=== PATIENT | male | born 1955 | race Hispanic/Latino ===

== ENCOUNTER 2018-07-11 14:16 | Inpatient (IN) | payer MEDICARE, OTHER ==
[~2018-07-11] VITALS: Ht 177.8 cm; Wt 100.8 kg
[2018-07-11] VITALS (22 sets, daily range): BP systolic 72–123; BP diastolic 41–77
[~2018-07-11 14:16] MED LIST: AMIODARONE HCL INJ 150MG/3ML IV ONE; ASPIRIN81 M1; ATORVASTATIN CA40 MG; ATROPINE SULFATE 0.1 MG/ML 10ML SYR IV ONE; FUROSEMIDE40 MG; GABAPENTIN300 MG; LEVEMIR; LEVOTHYROXINE112 MCG; NOVOLOG; PREDNISOLONE ACE5 ML; TRADJENTA5 MG; VITAMIN B12; VITAMIN D
[2018-07-11] MEDS ORDERED: ONDANSETRON HCL 4 MG ORAL DISINTEGRATING TAB ONE (15:10)
[2018-07-11] MEDS ORDERED: ONDANSETRON HCL 4 MG ORAL DISINTEGRATING TAB PO ONE (15:15)
[2018-07-11] MEDS ORDERED: DEXTROSE 50% SYRINGE 50 ML IV ONE (15:26)
[2018-07-11] MEDS ORDERED: ONDANSETRON HCL INJ 2 MG/ML VIAL IV STA (15:30)
[2018-07-11] MEDS ORDERED: FAMOTIDINE 20 MG/2 ML VIAL IV STA (15:30)
[2018-07-11] MEDS ORDERED: ONDANSETRON HCL INJ 2 MG/ML VIAL ONE (15:30)
[2018-07-11] MEDS ORDERED: FAMOTIDINE 20 MG/2 ML VIAL IV ONE (15:31)
[2018-07-11] MEDS ORDERED: SODIUM CHLORIDE 0.9% 250ML 200 ML IV ONE (15:32)
[2018-07-11] MEDS ORDERED: SODIUM CHLORIDE 0.9% 1000ML 1,000 ML ONE (15:32)
[2018-07-11] MEDS ORDERED: HYDRALAZINE HCL 20 MG/ML VIAL IV STA (15:40)
[2018-07-11 15:45] LABS: BASOPHILS # (AUTO) 0.1 (0.0-0.1); BASOPHILS % 0.5 % (0.0-1.0); EOSINOPHILS # (AUTO) 0.4 (0.0-0.4); EOSINOPHILS % 2.1 % (0.0-6.0); HEMATOCRIT 34.6 % (38.2-49.6); HEMOGLOBIN 11.2 g/dL (14.0-18.0); LYMPHOCYTES # (AUTO) 3.7 (1.0-3.2); LYMPHOCYTES % 21.8 % (18.0-39.1); MEAN CORPUSCULAR HEMOGLOBIN 31.7 pg (28-32); MEAN CORPUSCULAR HGB CONC 32.4 g/dL (31-35); MONOCYTES # (AUTO) 1.5 (0.2-0.8); MONOCYTES % 8.7 % (4.4-11.3); NEUTROPHILS # (AUTO) 11.2 (2.1-6.9); NEUTROPHILS % 66.3 % (38.7-80.0); PLATELET COUNT 275 x10e3/uL (140-360); RED BLOOD COUNT 3.53 x10e6/uL (4.3-5.7)
[2018-07-11] MEDS ORDERED: ASPIRIN 81 MG CHEW TAB PO ONE ×2 (15:45→17:30)
[2018-07-11] MEDS ORDERED: DEXTROSE 50% SYRINGE 50 ML IV STA (15:48)
[2018-07-11] MEDS ORDERED: ALBUTEROL SULF 0.083% NEB SOLN 3 ML NEB NEB STA (15:48)
[2018-07-11] MEDS ORDERED: SODIUM BICARBONATE 8.4% INJ 50 ML SYR IV STA (15:48)
[2018-07-11] MEDS ORDERED: ALBUTEROL SULF 0.083% NEB SOLN 3 ML NEB ONE (15:51)
[2018-07-11] MEDS ORDERED: HYDRALAZINE HCL 20 MG/ML VIAL ONE (15:53)
[2018-07-11] MEDS ORDERED: CALCIUM GLUCONATE 10% INJ 4.65 MEQ in SODIUM CHLORIDE 0.9% 50ML 50 ML IV ONE (16:00)
[2018-07-11] MEDS ORDERED: INSULIN REGULAR, HUMAN 100 UNIT/1 ML 3ML VIAL IV ONE ×2 (16:00→16:15)
[2018-07-11 16:05] LABS: ALBUMIN 3.8 g/dL (3.5-5.0); ANION GAP 23.8 mmol/L (8-16); CALCIUM 10.1 mg/dL (8.4-10.2); CREATININE, SERUM 9.05 mg/dL (0.72-1.25)
[2018-07-11 16:07] LABS: POTASSIUM 6.8 mmol/L (3.5-5.1)
[2018-07-11 16:12] LABS: CREATINE KINASE MB 4.7 ng/mL (0-5.0)
[2018-07-11] MEDS ORDERED: SODIUM CHLORIDE 0.9% 100 ML ONE (17:07)
[2018-07-11] MEDS ORDERED: AMIODARONE HCL 900 MG in DEXTROSE 5% 500ML 500 ML IV ONE (17:15)
[2018-07-11] MEDS ORDERED: AMIODARONE 900MG 500 ML IV SCH (17:15)
[2018-07-11] MEDS ORDERED: AMIODARONE HCL 150MG 100 ML IV ONE (17:15)
[2018-07-11 17:28] LABS: LYMPHOCYTES % (MANUAL) 20 % (19-48); MONOCYTES % (MANUAL) 6 % (3.4-9.0); NEUTROPHILS % (MANUAL) 74 % (40-74)
[2018-07-11 17:29] LABS: PLATELET ESTIMATE ADEQUATE; PLATELET MORPHOLOGY COMMENT NORMAL; RBC MORPHOLOGY COMMENT NORMAL
[2018-07-11] MEDS: FAMOTIDINE 20 MG/2 ML VIAL IV SCH (17:30)
[2018-07-11] MEDS ORDERED: SODIUM CHLORIDE FLUSH 10 ML SYR INJ PRN (17:30)
[2018-07-11] MEDS ORDERED: ONDANSETRON HCL INJ 2 MG/ML VIAL IV PRN (17:30)
[2018-07-11] MEDS ORDERED: CALCIUM GLUCONATE 10% INJ 0.465 MEQ/ML VIAL IV STA (17:34)
[2018-07-11] MEDS ORDERED: DEXTROSE 50% SYRINGE 50 ML IV PRN (17:45)
--- NOTE | 2018-07-11 17:57 | Diagnostic Imaging Report ---
Exams: Head and cervical spine CTs without IV contrast History: Trauma, fall Comparison studies: None Technique: Axial images were obtained from the brain and cervical spine. Coronal and sagittal images reconstructed from the axial data. Dose modulation, iterative reconstruction, and/or weight based adjustment of the mA/kV was utilized to reduce the radiation dose to as low as reasonably achievable. Intravenous contrast: None Findings: Head CT: Scalp: No abnormalities. Bones: No fractures, blastic or lytic lesions. Extra-axial spaces: No masses. No fluid collections. Brain sulci: Appropriate for age. Ventricles: Normal in size and configuration. No hydrocephalus. Parenchyma: No abnormal densities. No masses, acute hemorrhage, acute or chronic vascular insults. Sellar/suprasellar region: No abnormalities. Craniocervical junction: The foramen magnum is patent. No Chiari one malformation. Cervical spine CT: Fractures: Questionable age-indeterminate nondisplaced left C7 transverse process fracture. Evaluation at this level somewhat limited by attenuation artifact related to patient's overlying shoulders and by body habitus. No other fractures. Soft tissues: No gross acute abnormalities. Atlantoaxial articulation: Intact. Alignment: Normal lordosis. No scoliosis. Cervicomedullary junction: No abnormalities. The foramen magnum is patent. Vertebrae: No infection or neoplasm. Degenerative changes: Moderate degenerative changes at the atlantodental articulation. Mild degenerative changes at the right atlantooccipital articulation. Mild multilevel disc degeneration with partially calcified disc at C2-C3, C3-C4 and at C4-C5. There is mild multifocal ossification of the posterior longitudinal ligament. No significant canal stenosis. Pain foramina. Mild left C3-C4 foraminal stenosis due to uncovertebral facet arthrosis. Incidental findings: * Scattered calcified atherosclerosis with calcified plaque in the cervical carotid bulbs, carotid siphons and intradural vertebral arteries. Additional mass or calcifications in the scalp which can be seen in patients with chronic kidney disease. * Small 7 mm pineal cyst without associated mass effect. * Right lens replacement related to previous cataract surgery. Left lens is not well-visualized. Increased density in the left globe presumably related to silicone injection. IMPRESSION: Head CT: No acute abnormalities. Cervical spine CT: 1. Questionable age-indeterminate nondisplaced left C7 transverse process fracture. 2. No other fractures or subluxations. 3. Degenerative changes as described. 4. Please note, cannot adequately evaluate ligament, spinal cord and or vascular abnormalities on the basis of this examination. Signed by: Dr. Sukumar Iniguez M.D. on 07/11/2018 5:53 PM
--- NOTE | 2018-07-11 18:45 | Diagnostic Imaging Report ---
SHOULDER LEFT COMPLETE - 2 views HISTORY: Pain. Possible contusion. COMPARISON: None available. FINDINGS: Bones: No acute displaced fracture. Osseous alignment is within normal limits. Joints: The joint spaces are well-maintained. Soft tissues: Soft tissue swelling around the left deltoid. Left subclavian vascular stent. IMPRESSION: 1. No acute osseous abnormality. 2. Soft tissue swelling around the left deltoid. Signed by: Dr. Ralph Alcantar M.D. on 07/11/2018 6:42 PM
--- NOTE | 2018-07-11 18:46 | Diagnostic Imaging Report ---
EXAMINATION: CHEST SINGLE (PORTABLE) INDICATION: \S\Chest pain, look for CHF, enlarge Mediastinum COMPARISON: None FINDINGS: AP view TUBES and LINES: None. LUNGS: Lungs are not well inflated. Perihilar vascular crowding and atelectasis. There is no evidence of pneumonia or pulmonary edema. PLEURA: No pleural effusion or pneumothorax. HEART AND MEDIASTINUM: The cardiomediastinal silhouette is unremarkable. Left subclavian stent. BONES AND SOFT TISSUES: No acute osseous lesion. Soft tissues are unremarkable. UPPER ABDOMEN: No free air under the diaphragm. IMPRESSION: Hypoinflated lungs with perihilar vascular crowding and atelectasis. No acute abnormalities. Signed by: Dr. Ralph Alcantar M.D. on 07/11/2018 6:42 PM
--- NOTE | 2018-07-11 18:47 | Diagnostic Imaging Report ---
HIP LEFT 2-3 VW (+/- PELVIS) - 3 views HISTORY: Pain. Possible concussion. COMPARISON: None available. FINDINGS: Bones: No acute displaced fracture. Osseous alignment is within normal limits. Joints: Moderate degenerative changes of lower lumbar spine. Moderate to severe bilateral facet joint sclerosis. Soft tissues: The soft tissues appear unremarkable. Diffuse medium and small vessel vascular calcifications. IMPRESSION: No acute radiographic abnormality. Signed by: Dr. Ralph Alcantar M.D. on 07/11/2018 6:44 PM
[2018-07-11 18:48] LABS: ANION GAP 22.9 mmol/L (8-16); CALCIUM 11.3 mg/dL (8.4-10.2); CREATININE, SERUM 8.97 mg/dL (0.72-1.25)
[2018-07-11 18:49] LABS: POTASSIUM 5.9 mmol/L (3.5-5.1)
[2018-07-11] MEDS: HYDROMORPHONE 2MG/ML 2 MG/ML ML IV PRN (22:30)
[2018-07-12] VITALS (60 sets, daily range): BP systolic 76–159; BP diastolic 37–107
[2018-07-12 00:32] LABS: ANION GAP 17.3 mmol/L (8-16); CALCIUM 9.3 mg/dL (8.4-10.2); CREATININE, SERUM 4.54 mg/dL (0.72-1.25); POTASSIUM 4.3 mmol/L (3.5-5.1)
[2018-07-12 00:39] LABS: CREATINE KINASE MB 3.7 ng/mL (0-5.0)
[2018-07-12] MEDS: HYDROMORPHONE 2MG/ML 2 MG/ML ML IV PRN (04:02)
[2018-07-12 05:06] LABS: CREATINE KINASE MB 3.8 ng/mL (0-5.0)
[2018-07-12 05:08] LABS: ANION GAP 17.8 mmol/L (8-16); CALCIUM 9.5 mg/dL (8.4-10.2); CHOL/HDL RATIO 3.7 (3.9-4.7); CREATININE, SERUM 5.66 mg/dL (0.72-1.25); MAGNESIUM 2.2 MG/DL (1.3-2.1); POTASSIUM 4.8 mmol/L (3.5-5.1)
[2018-07-12] MEDS: FAMOTIDINE 20 MG/2 ML VIAL IV SCH ×2 (05:30→17:30)
[2018-07-12 11:01] LABS: FREE THYROXINE INDEX 2.4506 (1.4-3.8); THYROID STIMULATING HORMONE 2.76 uIU/mL (0.350-4.940)
[2018-07-12] MEDS ORDERED: NON-FORMULARY MEDICATION ([Vitamin D] 50,000 UNITS) SCH (11:15)
[2018-07-12] MEDS: FUROSEMIDE 40 MG TAB PO SCH (11:22)
[2018-07-12] MEDS: GABAPENTIN 300 MG CAP PO SCH (11:22)
--- NOTE | 2018-07-12 11:27 | Consultation ---
DATE OF CONSULTATION: ATTENDING PHYSICIAN: Ryan Davenport MD CLINICAL HISTORY: This is a 62-year-old white man known to me from previous evaluations admitted via the emergency room because of hyperkalemia causing severe bradycardia, heart rate dropping down to the 30s with potassium 6.8, causing the ER to give atropine, which reportedly caused ventricular tachycardia, which reportedly caused them to give amiodarone, which caused further bradycardia. I was not notified until today. This patient has history of dilated aortic root, right bundle branch block, left anterior hemiblock, diastolic dysfunction, hypothyroidism, diabetes, hypertension, depression. He is chronically on hemodialysis Saturdays, Tuesdays and . Reportedly he missed dialysis in the morning on Tuesday and in the afternoon he became severely bradycardic. Reportedly, he had fallen at home and could not make it to the dialysis center. PAST MEDICAL HISTORY: Remarkable for cholecystectomy and fracture of the left arm. There is a history of transverse myelitis. FAMILY HISTORY: Father had myocardial infarction in his 70s. Father had stroke. PERSONAL / SOCIAL HISTORY: Denies smoking and drinking. ALLERGIES: NONE KNOWN. REVIEW OF SYSTEMS: Negative. PHYSICAL EXAMINATION GENERAL: He is somewhat overweight. CARDIAC: Jugular veins are not distended. S1, S2 were regular. There is no appreciable murmur. LUNGS: Clear. ABDOMEN: Soft. Bowel sounds are present. EXTREMITIES: No cyanosis, clubbing or edema. LABORATORY STUDIES: The initial electrocardiogram showed sinus bradycardia, occasional runs of PSVT at a rate of approximately 105 beats per minute nonsustained. The chest x-ray showed hypoinflated lungs. Perihilar vascular crowding. Hip x-ray was unremarkable. CT of the brain showed no acute abnormalities. Cervical CT: C7 transverse process fracture. Thyroid functions are pending. Triglycerides 158, cholesterol 131, LDL 35. White count is 16,000, hemoglobin 11.2, platelet count 475,000. IMPRESSION 1. Severe bradycardia probably due to severe hyperkalemia, potassium 6.8. 2. Severe hyperkalemia, potassium 6.82. 3. End-stage renal disease on chronic hemodialysis on Saturdays, Tuesdays and . 4. Nonsustained supraventricular tachycardia and unclear ventricular tachycardia after atropine since this was not documented on the tracings available to me. 5. History of hypothyroidism. 6. Right bundle-branch block and left anterior hemiblock. 7. Diastolic dysfunction. 8. Diabetes. 9. Hypertension. 10. Dilated aortic root measuring 3.9 cm in 2012. 11. Depression. 12. History of transverse myelitis. 13. C7 transverse process fracture. RECOMMENDATIONS: Check thyroid functions. Continue telemetry and dialysis. Consider repeat echocardiogram, particularly to check the aortic root size as well as left ventricular dysfunction and left atrial size. This patient has a history of hypotension and was previously taking midodrine. Job#: [id number] cc:Cullen KOCH MD SALMAN KHAN, MD
[2018-07-12] MEDS: INSULIN LISPRO 100 UNIT/1 ML 3ML VIAL SQ SCH ×2 (11:30→16:30)
[2018-07-12] MEDS ORDERED: INSULIN ASPART SCH (11:30)
[2018-07-12 12:43] LABS: CREATINE KINASE MB 4.6 ng/mL (0-5.0)
[2018-07-12] MEDS: ASPIRIN 81 MG ENTERIC COATED PO SCH (12:58)
[2018-07-12] MEDS: CYANOCOBALAMIN 1,000 MCG TAB PO SCH (12:59)
--- NOTE | 2018-07-12 13:17 | Consultation ---
DATE OF CONSULTATION: July 11, 2018 RENAL CONSULTATION HISTORY OF PRESENT ILLNESS: Patient was seen in the emergency room. A 62-year-old gentleman well known to our nephrology service. Apparently missed his dialysis. Presented to the emergency room with weakness. Found to have life-threatening hyperkalemia, initial potassium 6.8. Emergent treatment given by Dr. Rush. Patient otherwise comfortable, lying supine. His heart rate had dropped almost to 30s. Right now it is back up to 70. He appears to be in sinus rhythm. Further labs show bicarb 19, creatinine 9.0, with a glucose 482. ALLERGIES: IODINE. HOME MEDICATIONS: Not reconciled yet. SOCIAL HISTORY: Patient does not smoke or drink. FAMILY HISTORY: Significant for hypertension. PAST MEDICAL HISTORY: End-stage renal disease. Left upper arm AV fistula. Hypertension. Diabetes with end-organ damage. Retinopathy. Neuropathy. 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 Underlying secondary hyperparathyroidism. Anemia of chronic kidney disease. History of congestive heart failure. PHYSICAL EXAMINATION: GENERAL: Awake, alert, lying supine. No apparent distress. VITALS: Blood pressure of 148/40, pulse rate 70, afebrile, respiratory rate 14, oxygen saturation 96% room air. HEAD AND NECK: Cornea clear. Oral mucosa dry. LUNGS: Relatively clear upper and mid zone. Bilateral lower zone rales noted. HEART: S1 and S2 audible. ABDOMEN: Soft, nontender. LOWER EXTREMITY EXAMINATION: No edema. IMPRESSION: Noncompliant end-stage renal disease patient with life-threatening hyperkalemia, fluid overload, end-stage renal disease, underlying hypertension. Bradycardia secondary to hyperkalemia, now improving. Currently in sinus rhythm. Patient in no acute respiratory distress. Dialysis nurse at bedside, but patient already has a room, 189, will be transferred immediately and then dialysis will be initiated. Discussed with patient. Please see dialysis note. This is late entry. Job#: [id number] EV
[2018-07-12] MEDS ORDERED: PREDNISOLONE ACETATE 1% OPTH SUSP 5 ML BTL EACH EAR SCH (17:00)
[2018-07-12] MEDS ORDERED: SODIUM CHLORIDE 0.9% 1000ML 2,000 ML ONE (17:13)
[2018-07-12] MEDS ORDERED: SODIUM CHLORIDE 0.9% 1000ML 2,000 ML IV PRN (17:30)
[2018-07-12] MEDS ORDERED: CITALOPRAM HBR20 MG PO (20:58)
[2018-07-12] MEDS ORDERED: METOPROLOL SUCC25 MG PO (20:58)
[2018-07-12] MEDS ORDERED: TRADJENTA5 MG PO (20:58)
[2018-07-12] MEDS ORDERED: GLIMEPIRIDE2 MG PO (20:58)
[2018-07-12] MEDS ORDERED: ATORVASTATIN 40 MG TAB PO SCH (21:00)
[2018-07-12] MEDS ORDERED: NON-FORMULARY MEDICATION (Atorvastatin Calcium 40 MG) SCH (21:00)
[2018-07-13] VITALS: BP 149/66
[2018-07-13 04:00] VITALS: BP 153/67
[2018-07-13] MEDS: FAMOTIDINE 20 MG/2 ML VIAL IV SCH (06:00)
[2018-07-13] MEDS ORDERED: LEVOTHYROXINE SODIUM 112 MCG TAB PO SCH (06:00)
[2018-07-13] MEDS: INSULIN LISPRO 100 UNIT/1 ML 3ML VIAL SQ SCH (07:30)
[2018-07-13 08:25] VITALS: BP 170/77
--- NOTE | 2018-07-13 08:53 | Discharge Summary ---
NEUROSURGICAL CONSULTATION REASON FOR CONSULTATION: Rule out cervical spine fracture. HISTORY OF PRESENT ILLNESS: The patient is a 62-year-old man who was admitted for evaluation of syncope. In the process he had a CT of the cervical spine that was interpreted by the radiologist as showing a questionable fracture of the left C7 transverse process. The patient is completely asymptomatic with regard to his cervical spine. He has no neck pain. He has good range of motion. He has normal motor strength in the upper and lower extremities. I have reviewed his cervical spine CT. There is no evidence of fracture. There are no acute findings. There is no swelling in the paraspinal soft tissues. IMPRESSION: No evidence of cervical spine fracture. He does not require further evaluation or treatment for this. JIHAN BILLINGSLEY MD Job#: [id number] EV
[2018-07-13 09:00] VITALS: BP 170/77
[2018-07-13] MEDS ORDERED: (Linagliptin (Tradjenta) 5 MG) PO SCH (09:00)
[2018-07-13] MEDS: CYANOCOBALAMIN 1,000 MCG TAB PO SCH (09:00)
[2018-07-13] MEDS: GABAPENTIN 300 MG CAP PO SCH (09:00)
[2018-07-13] MEDS: FUROSEMIDE 40 MG TAB PO SCH (09:00)
[2018-07-13] MEDS: ASPIRIN 81 MG ENTERIC COATED PO SCH (09:00)
[2018-07-13] MEDS ORDERED: NON-FORMULARY MEDICATION (Aspirin 81 MG) SCH (09:00)
[2018-07-13] MEDS ORDERED: ERGOCALCIFEROL 50,000 UNIT CAP PO SCH (09:00)
[2018-07-13] MEDS ORDERED: VITAMIN B12 1000 MCG SCH (09:00)
[2018-07-13] MEDS ORDERED: METOPROLOL SUCCINATE 25 MG TAB XL PO SCH (10:00)
[2018-07-13] MEDS ORDERED: CITALOPRAM HYDROBROMIDE 20 MG TAB PO SCH (11:00)
--- NOTE | 2018-07-13 12:38 | Cardiology Report ---
DATE OF STUDY: ECHOCARDIOGRAM ATTENDING PHYSICIAN: Dr. Patrick Feliz. A 62-year-old male. M-MODE: Normal chamber wall dimensions. Normal left ventricular contractility. Sclerosis of the mitral valve annulus. Top normal aorta in good size. No pericardial effusion. SECTOR SCAN: Normal chamber wall dimensions. Normal contractility. Ejection fraction is approximately 65%. Aortic root measures approximately 3.6 cm. Mitral annular sclerosis. Normal aortic and tricuspid valves. No pericardial effusion. CARDIAC DOPPLER STUDY WITH COLOR: Trace mitral tricuspid regurgitation. CONCLUSIONS 1. Aortic root measures 3.6 cm without aortic regurgitation. 2. Sclerosis of the mitral valve annulus with trace mitral regurgitation. 3. Trace tricuspid regurgitation. 4. Left ventricular ejection fraction is approximately 65%. Job#: [id number] DKA cc:DR. PATRICK FELIZ
[2018-07-13 12:45] VITALS: BP 162/87
[2018-07-14] MEDS ORDERED: GLIMEPIRIDE 2 MG TAB PO SCH (08:00)
== END 2018-07-13 17:11 | disposition home or self-care (01) | DRG 640 ==
LOC: ER 14:16 → ERHOLD 18:50 → ICU 18:51 → MED/SURG 07-12 15:34
PROC: 5A1D70Z Performance of Urinary Filtration, Intermittent, Less than 6 Hours Per Day (ICD-10-PCS; principal; 2018-07-11)
DX: E87.5 Hyperkalemia (principal); N18.6 End stage renal disease; I13.2 Hypertensive heart and chronic kidney disease with heart failure and with stage 5 chronic kidney disease, or end stage renal disease; I47.1 Supraventricular tachycardia; I47.2 Ventricular tachycardia; I45.2 Bifascicular block; E11.22 Type 2 diabetes mellitus with diabetic chronic kidney disease; I50.9 Heart failure, unspecified; Z99.2 Dependence on renal dialysis; Z91.15 Patient's noncompliance with renal dialysis; Z79.84 Long term (current) use of oral hypoglycemic drugs; Z79.82 Long term (current) use of aspirin; E11.40 Type 2 diabetes mellitus with diabetic neuropathy, unspecified; E11.319 Type 2 diabetes mellitus with unspecified diabetic retinopathy without macular edema; E21.3 Hyperparathyroidism, unspecified; D63.1 Anemia in chronic kidney disease; R00.1 Bradycardia, unspecified; E03.9 Hypothyroidism, unspecified; F32.9 Major depressive disorder, single episode, unspecified; I95.9 Hypotension, unspecified; I77.810 Thoracic aortic ectasia; W18.11XA Fall from or off toilet without subsequent striking against object, initial encounter; Y93.E8 Activity, other personal hygiene; Y92.002 Bathroom of unspecified non-institutional (private) residence as the place of occurrence of the external cause
CPT/HCPCS: 36415; 70450; 71045; 72125; 80048; 80053; 80061; 82550; 82553; 82948; 83735; 84436; 84443; 84479; 84484; 85025; 86704; 86706; 90962; 93005; 93306; 94640; 96366; 99285; J0360; J0610; J2405; J7030; J7050; J7060; J7799